=== PATIENT | male | born 1955 | race Caucasian/White ===

== ENCOUNTER 2023-09-24 19:28 | Observation (INO) | payer MEDICARE ==
[2023-09-24] MEDS ORDERED: iohexoL-300 100 ML VIAL ONE ×2 (19:54→19:55)
--- NOTE | 2023-09-24 19:54 | ED Physician Documentation ---
PD HPI FOCAL NEURO - Stated complaint Stated Complaint: SLURRED SPEECH/LOSS OF BALANCE - Chief complaint Chief Complaint: Neuro - History obtained from History obtained from: Patient - Additional information Additional information: 67-year-old gentleman with history of hypercholesterolemia and migraines on Topamax prophylaxis. That is his only medication and he was on a statin but stopped it a few weeks ago. He is visiting from [place] and has symptoms of chronic neurologic issue, as yet undiagnosed. Starting a month ago he has developed intermittent slurred speech with a mild left facial droop and some clumsiness on the left side. It is much worse since midday today. 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 He does have extinction feeling only the left leg when I am touching both.) Eye Opening: Spontaneous Motor: Obeys Commands Verbal: Oriented GCS Score: 15 NIHSS - Time Time: 19:45 - Level of Consciousness Level of consciousness: (0) Alert, Keenly responsive LOC Questions: (0) Answers both Q's correct LOC Commands: (0) Performs both correctly - Gaze Best Gaze: (0) Normal - Visual Visual: (0) No loss - Facial Palsy Facial Palsy: (0) Normal, symmetrical movement - Motor Arms (both separate) Motor Arm (right): (0) No drift Motor Arm (left): (3) No effort against gravity - Motor Legs (both separate) Motor Leg (right): (0) No drift Motor Leg (left): (0) No drift - Limb Ataxia Limb Ataxia: (1) Present in 1 limb - Sensory Sensory: (1) Rdcx-vz-bispdfjc loss - Best Language Best Language: (0) No aphasia - Dysarthria Dysarthria: (1) Vxkx-xb-blvmpvgn dysarthria - Extinction and Inattention (formally neg Extinction and inattention: (1) Visual,tactile,auditory,spatial, or personal inattention - Total Score/Results Total Score/Result: 7 Results - Vitals Vitals: Vital Signs - 24 hr 09/24/23 19:40 Temperature 36.6 C Heart Rate 64 Respiratory 16 Rate Blood Pressure 161/78 H O2 Saturation 97 Oxygen O2 Source Room air - EKG (time done) 1956 EKG releavant findings:: EKG personally interpreted by author of this note. Relevant findings are: Rate: Rate (enter#) (61) Rhythm: NSR [place]: Normal Intervals: Normal SC QRS: Normal Ischemia: Normal ST segments - Labs Labs: Laboratory Tests 09/24/23 09/24/23 09/24/23 19:50 19:50 20:02 WBC 5.4 RBC 5.43 Hgb 16.2 Hct 47.7 MCV 87.8 MCH 29.8 MCHC 34.0 RDW 13.1 Plt Count 179 MPV 10.0 Neut # (Auto) 3.6 Lymph # (Auto) 0.9 L [place] # (Auto) 0.7 Eos # (Auto) 0.2 Baso # (Auto) 0.1 Absolute Nucleated RBC 0.00 Nucleated RBC % 0.0 PT 12.4 INR 1.1 Sodium 136 Potassium 3.8 Chloride 106 Carbon Dioxide 22 Anion Gap 8.0 BUN 22 H Creatinine 1.3 Estimated GFR (MDRD) 55 L Glucose 132 H Calcium 9.2 Total Bilirubin 0.6 AST 28 ALT 28 Alkaline Phosphatase 90 Total Protein 7.1 Albumin 4.1 Globulin 3.0 Albumin/Globulin Ratio 1.4 Lipase 19 - Rads (name of study) CT/CTA of the head and neck were negative for findings or LVO. Relevant Findings:: Final report received, EMP independent interpretation of test PD Medical Decision Making - ED course ED course: 67-year-old gentleman presents with strokelike symptoms. He has been having symptoms on and off for a month but much worse since noon today. He arrives about a little after 7 PM so he is not a TNK candidate. Subsequently CT and CT angiography were negative. Lab work demonstrated normal CBC, CMP, and INR. On reexamination at 8:55 PM his symptoms were much better. He was ambulatory and wanting to go home. I discussed with him that I felt it was much safer for him to stay in the hospital for neuro observation and MRI tomorrow and he is agreeable and spoke with Dr. Mitchell of telehealth at approximately 9 PM. Departure - Departure Disposition: ED Place in Observation Clinical Impression: Stroke-like symptoms Condition: Serious Forms: PCP List
[2023-09-24 19:57] LABS: BASOPHILS # (AUTO) 0.1 10^3/uL (0.0-0.1); BASOPHILS % (AUTO) 1.3 %; EOSINOPHILS # (AUTO) 0.2 10^3/uL (0.0-0.7); EOSINOPHILS % (AUTO) 3.1 %; HCT - HEMATOCRIT 47.7 % (42.0-52.0); HGB - HEMOGLOBIN 16.2 g/dL (14.0-18.0); LYMPHOCYTES # (AUTO) 0.9 10^3/uL (1.5-3.5); LYMPHOCYTES % (AUTO) 16.4 %; MEAN CORPUSCULAR HEMOGLOBIN 29.8 pg (27.0-31.0); MEAN CORPUSCULAR VOLUME 87.8 fL (80.0-94.0); MONOCYTES # (AUTO) 0.7 10^3/uL (0.0-1.0); MONOCYTES % (AUTO) 13.6 %; NEUTROPHILS # (AUTO) 3.6 10^3/uL (1.5-6.6); NEUTROPHILS % (AUTO) 65.4 %; PLT - PLATELET COUNT 179 10^3/uL (130-450); RED BLOOD COUNT 5.43 10^6/uL (4.70-6.10); RED CELL DISTRIBUTION WIDTH 13.1 % (12.0-15.0); WHITE BLOOD COUNT 5.4 x10^3/uL (4.8-10.8)
[2023-09-24 20:06] LABS: ALBUMIN 4.1 g/dL (3.2-5.5); ALBUMIN/GLOBULIN RATIO 1.4 (1.0-2.2); BILIRUBIN,TOTAL 0.6 mg/dL (0.2-1.0); CALCIUM 9.2 mg/dL (8.5-10.3); CREATININE 1.3 mg/dL (0.6-1.3); POTASSIUM 3.8 mmol/L (3.5-4.5); TOTAL PROTEIN 7.1 g/dL (6.4-8.9)
[2023-09-24] MEDS: iohexoL-300 100 ML VIAL IVP ONE (20:25)
[2023-09-24 20:28] LABS: INR 1.1 (0.8-1.2); PT - PROTHROMBIN TIME 12.4 secs (9.9-12.6)
--- NOTE | 2023-09-24 20:43 | CT Report ---
PROCEDURE: Head W/O Stroke Protocol INDICATIONS: Neuro deficit, acute, stroke suspected TECHNIQUE: Noncontrast 4.5 mm thick angled axial sections acquired from the foramen magnum to the vertex, with c oronal reformats. For radiation dose reduction, the following was used: automated exposure control, adjustment of mA and/or kV according to patient size. COMPARISON: None. FINDINGS: Image quality: Diagnostic. CSF spaces: Basal cisterns are patent. No extra-axial fluid collections. Ventricles are normal in size and shape. Brain: No midline shift. No intracranial masses or hemorrhage. Mc[place]-white matter interface is norm al. Skull and face: Calvarium and visualized facial bones are intact, without suspicious lesions. Sinuses: Visualized sinuses and mastoids are clear. IMPRESSION: No acute intracranial pathology Findings were discussed with ED ordering provider on 09/24/2023 at 8:42 PM PST. This study fulfills neurological imaging criteria for inclusion or exclusion of acute stroke therapie s based on available published neurological imaging guidelines. Reviewed by: Joanna Tao MD, PhD on 09/24/2023 8:42 PM PDT Approved by: Joanna Tao MD, PhD on 09/24/2023 8:42 PM PDT Station ID: [id number]
--- NOTE | 2023-09-24 20:47 | CT Report ---
PROCEDURE: Angio Head/Neck INDICATIONS: cva sx TECHNIQUE: After the administration of intravenous contrast, 1 mm thick sections acquired from the aortic arch t hrough the [place] of [place]. 3-dimensional nhujjot-ohyzasixn-wxnwqryzpt (MIP) and/or volume renderin g reformats were acquired of the central intracranial vasculature and neck separately. For radiation dose reduction, the following was used: automated exposure control, adjustment of mA and/or kV acco rding to patient size. CONTRAST: 100 ML OMNI 300 COMPARISON: Same day head CT 09/24/2023. FINDINGS: Image quality: Diagnostic. HEAD CT: CSF Spaces: Basal cisterns are patent. No extra-axial fluid collections. Ventricles are normal in size and shape. Brain: No significant abnormality is seen for scanning technique. Skull and face: Calvarium and visualized facial bones appear intact, without suspicious lesions. Sinuses: Visualized sinuses and mastoids are clear. HEAD CT ANGIOGRAPHY: Anterior circulation: Intracranial internal carotid arteries are normal in size and flow. The flow within the paired anterior cerebral arteries is normal and symmetric. The flow within the middle cer ebral arteries is normal and symmetric. The anterior communicating artery is seen. No aneurysms are seen. Posterior circulation: Visualized portions of the vertebral arteries demonstrate normal caliber, and join to form a normal appearing basilar artery. Flow within the posterior cerebral arteries is norm al and symmetric. No aneurysms are seen. NECK CT ANGIOGRAPHY: Carotid system: The great vessels demonstrate a conventional anatomy as they arise from the aortic a rch. The origins of the common carotid arteries appear patent. The common carotid arteries demonstr ate normal caliber and courses. The bifurcation regions are both widely patent. The internal caroti d arteries demonstrate normal calibers and courses. Posterior circulation: The origins of the vertebral arteries both appear widely patent. The more hester perior extracranial portions of both vertebral arteries also demonstrate normal courses and calibers. They join to form a normal appearing basilar artery. Soft tissues: Visualized neck soft tissues demonstrate no suspicious abnormalities. Bones: No suspicious bony lesions. Visualized cervical spine appears normally aligned. IMPRESSION: No significant intracranial arterial abnormality is seen. No significant abnormality is seen within the arteries of the neck. The estimate of stenosis included in the report of the imaging study was calculated using the NASCET method Reviewed by: Joanna Tao MD, PhD on 09/24/2023 8:45 PM PDT Approved by: Joanna Tao MD, PhD on 09/24/2023 8:45 PM PDT Station ID: [id number]
[2023-09-24] MEDS ORDERED: ACETAMINOPHEN 325 MG TABLET PO PRN (21:01)
[2023-09-24] MEDS ORDERED: SODIUM CHLORIDE FLUSH 0.9% 10 ML SYRINGE IVP PRN (21:01)
--- NOTE | 2023-09-24 21:45 | HISTORY & PHYSICAL EXAMINATION ---
Chief Complaint - Chief Complaint Chief Complaint: slurred speech History of Present Illness - Admitted From Admitted From:: ED - History of Present Illness HPI Comment/Other: Mr. Parra is a gentleman with a history of ataxia and gait abnormalities that have been present for the past 3-4 years. He has undergone extensive evaluation that has been unrevealing. He follows with a neurologist in his home state of [facility], who believes he may have a type of Parkinsonism. Over the past month he has had intermittent episodes of slurred speech. he denies any preceeding symptoms. His at bedside explained that increased activity and fatigue appears to bring on these symptoms. On the day of presentation, he woke up with the slurred speech. This episode progressively worsened and he presented to the ED under the advisement of his neurologist. In the ED, CT and CTA head was negative. Labwork was unremarkable. During my evaluation, patient's NIHSS was 4, this was improved from his presenting score of 7. Evaluation was performed using real-time telehealth tools, including live video. Patient's verbal consent was provided. History - Past Medical History Cardiovascular: reports: Hypertension Respiratory: reports: None Neuro: reports: Migraines, Other (ataxia) Endocrine/Autoimmune: reports: None GI: reports: None CERTIFIED NURSES' AIDE: reports: None : reports: None HEENT: reports: None Psych: reports: None Musculoskeletal: reports: None Derm: reports: None MRSA Hx?: No Meds/Allgy - Allergies Allergies/Adverse Reactions: Allergies Allergy/AdvReac Type Severity Reaction Status Date / Time No Known Drug Allergies Allergy Verified 09/24/23 19:46 Review of Systems - Neurological Neurological: reports: Pre-existing deficit, Abnormal gait, Slurred speech - All Other Systems All Other Systems: reports: Reviewed and negative Exam - Vital Signs Reviewed Vital Signs: Yes Vital Signs: Vital Signs x48h Temp Pulse Resp BP Pulse Ox 09/24/23 21:25 57 L 16 137/80 H 97 09/24/23 19:40 36.6 C 64 16 161/78 H 97 - Physical Exam General Appearance: positive: No acute distress, Alert Eyes Bilateral: positive: Normal inspection, PERRL Neck: positive: Nml inspection, Thyroid nml, No JVD, Trachea midline Respiratory: positive: Chest non-tender, No respiratory distress, Breath sounds nml Cardiovascular: positive: Regular rate & rhythm, No murmur, No gallop Skin: positive: Color nml, No rash, Warm, Dry Extremities: positive: Non-tender, Full ROM, Nml appearance Neurologic/Psychiatric: positive: Oriented x3, Sensory loss, Facial droop, Slurred/abnml speech Conclusion/Plan - Problem List (1) Stroke-like symptoms Conclusion/Plan: Etiology uncertain, history of abnormal gait, neurodegenerative disease suspected. new onset speech deficit TIA vs CVA can not be excluded -CT and CTA negative, will proceed with MRI in the AM -due to time frame and transient nature of symptoms, not a tPA candidate -monitor with neurochecks, deficits continue to improved -optimize medical management. aspirin 81mg and atorvastatin 40mg initiated. -As needed antihypertensive for optimize blood pressure management, SBP <160 -follow up with neurology as needed, pending workup results -PT/ST/OT consultation as needed prior to discharge - Lab Results Fish Bones: 09/24/23 19:50 09/24/23 19:50 Core Measures - Anticipated LOS I expect patient to be DC'd or transferred within 96 hours.: Yes - DVT/VTE - Prophylaxis VTE/DVT Device ordered at admit?: Yes Telemedicine Consult Details - Provider Location & Consult Time Telemedicine consultation conducted via videoconferencing?: Yes
[2023-09-24] MEDS: ASPIRIN CHEW 81 MG TABLET PO STA (22:51)
[2023-09-24] MEDS: ATORVASTATIN 40 MG TABLET PO STA (22:51)
[2023-09-25] MEDS: SODIUM CHLORIDE FLUSH 0.9% 10 ML SYRINGE IVP SCH (05:36)
--- NOTE | 2023-09-25 08:09 | DISCHARGE SUMMARY ---
"Discharge Summary Admit Date: 09/24/23 Discharge Date: 09/25/23 Discharging Provider: Marisela Ramirez PA-C Primary Care Provider: Out of state Discharge Disposition: 01 Home, Self Care - DIAGNOSES Admission Diagnoses: stroke like symptoms Discharge Diagnoses with Status of Each Condition: Strokelike symptoms. Patient was admitted and received CT of the head CTA of the head and neck in the emergency department. His ataxia and facial droop resolved overnight. He had a normal neurological exam in the morning he underwent MRI of the brain with and without contrast this is negative for any CVA he was therefore discharged home in stable condition with his . 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 His symptoms were thought to be due to fatigue combined with this condition. - HPI History of Present Illness: From admission H&P: Mr. Parra is a gentleman with a history of ataxia and gait abnormalities that have been present for the past 3-4 years. He has undergone extensive evaluation that has been unrevealing. He follows with a neurologist in his home state of [place], who believes he may have a type of Parkinsonism. Over the past month he has had intermittent episodes of slurred speech. he denies any preceeding symptoms. His at bedside explained that increased activity and fatigue appears to bring on these symptoms. On the day of presentation, he woke up with the slurred speech. This episode progressively worsened and he presented to the ED under the advisement of his neurologist. In the ED, CT and CTA head was negative. Labwork was unremarkable. During my evaluation, patient's NIHSS was 4, this was improved from his presenting score of 7. Evaluation was performed using real-time telehealth tools, including live video. Patient's verbal consent was provided. - CONSULTS | PROCEDURES Consultations: none - HOSPITAL COURSE Hospital Course: Admitted for strokelike symptoms with negative CT of the head and CTA of the neck. He had a normal CBC CMP and INR on admission. His symptoms actually resolved prior to leaving the emergency department but he consented to stay overnight for neuro observation and MRI. He is admitted via telehealth. Had MRI which was negative and was discharged home in the morning. He resides in [place], is here visiting family. He has establish primary care and neurology follow-up in [place] when he arrives home. - ALLERGIES Allergies/Adverse Reactions: Allergies Allergy/AdvReac Type Severity Reaction Status Date / Time No Known Drug Allergies Allergy Verified 09/24/23 19:46 - MEDICATIONS Home Medications: Ambulatory Orders Medication Instructions Recorded Confirmed Finasteride [Proscar] 5 mg PO DAILY 09/25/23 09/25/23 Rizatriptan Benzoate [Rizatriptan] 10 mg PO ONCE PRN 09/25/23 09/25/23 Rosuvastatin Calcium 10 mg PO DAILY 09/25/23 09/25/23 Tamsulosin [Flomax] 0.4 mg PO DAILY 09/25/23 09/25/23 Topiramate [Topamax] 25 mg PO BID 09/25/23 09/25/23 - PHYSICAL EXAM AT DISCHARGE General Appearance: positive: No acute distress Eyes Bilateral: positive: Normal inspection, PERRL, EOMI ENT: positive: ENT inspection nml Neck: positive: Nml inspection Respiratory: positive: No respiratory distress, Breath sounds nml Cardiovascular: positive: Regular rate & rhythm Peripheral Pulses: positive: 2+ Abdomen: positive: No distention Back: positive: Nml inspection Skin: positive: Color nml Extremities: positive: Non-tender, Full ROM Neurologic/Psychiatric: positive: Oriented x3, CN's nml (2-12), Motor nml, Sensation nml, Mood/affect nml. negative: Facial droop, Slurred/abnml speech - LABS Result Diagrams: 09/24/23 19:50 09/24/23 19:50 - DIAGNOSTIC IMAGING Diagnostic Imaging Results: Final report reviewed Diagnostic Imaging Results Comments: MRI brain with and without contrast is negative - FOLLOW UP Follow Up: PCP and neurology in [place]- has established relationships - TIME SPENT Time Spent in Discharge (Minutes): 25"
--- NOTE | 2023-09-25 08:15 | MRI Report ---
PROCEDURE: Brain WO INDICATIONS: r/o CVA TECHNIQUE: Noncontrast axial T1 spin echo, axial T2 fast spin echo, sagittal and axial FLAIR, coronal T2 fast sp in echo, axial gradient echo, axial diffusion and ADC through the brain. COMPARISON: None. FINDINGS: Image quality: Diagnostic CSF spaces: Basal cisterns are patent. Lateral ventricles are symmetric. Volume: Periventricular white matter signal abnormality is commonly seen with chronic microangiopathy . Volume loss is present. These findings are mild to moderate. Brain: No acute infarct or intracranial hematoma Craniofacial structures: No significant paranasal sinus opacity. IMPRESSION: No acute intracranial infarct or hematoma. Reviewed by: Ke Vallejo MD on 09/25/2023 8:14 AM PDT Approved by: Ke Vallejo MD on 09/25/2023 8:14 AM PDT Station ID: [id number]
[2023-09-25] MEDS: ATORVASTATIN 40 MG TABLET PO SCH (08:43)
[2023-09-25] MEDS: ASPIRIN CHEW 81 MG TABLET PO SCH (08:43)
[2023-09-25 08:48] VITALS: BP 145/73; O2SAT 94
--- NOTE | 2023-09-25 09:04 | PHARMACY PROGRESS NOTE ---
- Best Possible Medication History Admit Date and Time: 09/24/232100 Processed by: Pharmacy Medications reviewed in ED?: Yes Medication History completed: Yes Patient Interview: Completed Secondary Source(s): Pharmacy records, Insurance records As the person ultimately responsible for medication therapy, providers are able to order a medication from an existing home medication list in [facility] via the "Reconcile Routine" prior to Confirmation of that medication by support assistant. Such practice is discouraged except when the physician, in their clinical judgment, deems that a medical need exists for a medication without regard to previous use.
--- NOTE | 2023-09-25 09:13 | Discharge Plan ---
Discharge Plan Problem Reviewed?: Yes Disposition: Home, Self Care Diet: Regular Activity Restrictions: No Restrictions Shower Restrictions: No Driving Restrictions: No Assistance Devices: Cane Health Concerns: It is overall unclear what is going on with your neurological status. However, I believe what happened to you yesterday was likely a result of fatigue and s tress. There is no evidence that this was a mini stroke also known as transient ischemic attack. I would encourage you to continue to do things that make you happy. I would encourage you to be as active as you can, but remain safe. Plan of Treatment: Resume all home medications. For your general health, keep an eye on your blood pressure. While you have been here your blood pressure has been well within normal limits. I would recommend that you seek care for blood pressure if the top number is over 160. Your heart rate has also looked normal while you have been here. Assessment: Acute neurological changes not result of acute stroke. Likely a result of unknown neurodegenerative disorder and decompensation related to fatigue. Additional Instructions or Follow Up instructions: Follow-up with primary care and neurologist when you arrive home again. Take your CD of your MRI to your local health system and have that loaded in. No Smoking: If you smoke, Please STOP! Call for help.
== END 2023-09-25 09:38 | disposition home or self-care (01) ==
LOC: ED 19:28 → MS2 21:01
PROVIDERS: ADMIT Hospitalist; ATTEND Physician Assistant Medical
DX: R29.90 Unspecified symptoms and signs involving the nervous system (principal); R47.81 Slurred speech; R29.810 Facial weakness; R27.0 Ataxia, unspecified; R53.83 Other fatigue; I10 Essential (primary) hypertension
CPT/HCPCS: 36415; 70450; 70496; 70498; 70551; 80053; 83690; 85025; 85610; 93005; 99285; A9270; G0378; Q9967